=== PATIENT | female | born 2000 | race Two or more races ===

== ENCOUNTER 2019-02-07 15:07 | Emergency (ER) | payer OTHER, MEDICAID ==
[~2019-02-07] VITALS: Ht 154.9 cm; Wt 54.4 kg
[2019-02-07 15:15] VITALS: BP 135/79
[2019-02-07 15:57] LABS: Urine Pregnacy Test Negative (Negative)
[2019-02-07 15:58] LABS: Urine Bacteria FEW /hpf (None Seen); Urine Blood 1+ /uL (Negative); Urine Mucus FEW (None Seen); Urine Specific Gravity 1.023 (1.001-1.035); Urine WBC 1 /hpf (0 - 5)
[2019-02-07 16:14] LABS: Amphetamine Screen, Urine POSITIVE (NEGATIVE); Barbiturate Scree,Urine NEGATIVE (NEGATIVE); Benzodiazephine Screen, Urine NEGATIVE (NEGATIVE); Cannabinoid Screen, Urine NEGATIVE (NEGATIVE); Cocaine Screen, Urine NEGATIVE (NEGATIVE); Opiate Scree,Urine NEGATIVE (NEGATIVE); Phencyclidine Screen, Urine NEGATIVE (NEGATIVE)
== END 2019-02-07 21:35 | disposition left against medical advice (07) ==
LOC: ER 15:16
DX: T43.621A Poisoning by amphetamines, accidental (unintentional), initial encounter (principal); R20.0 Anesthesia of skin; Z53.21 Procedure and treatment not carried out due to patient leaving prior to being seen by health care provider
CPT/HCPCS: 80307; 81001; 81025

== ENCOUNTER 2019-04-16 10:53 | Emergency (ER) | payer OTHER, MEDICAID ==
[~2019-04-16] VITALS: Ht 154.9 cm; Wt 56.7 kg
[2019-04-16] MEDS ORDERED: SODIUM CHLORIDE 0.9% 1,000 ML IVB ONE (11:00)
[2019-04-16] MEDS ORDERED: LORazepam 2MG/ML-1ML VIAL IV ONE (11:00)
[2019-04-16 11:27] LABS: Basophils # (auto) 0 uL; Basophils % (auto) 0.9 % (0.0-2.0); Eosinophils # (auto) 0.2 uL; Eosinophils % (auto) 4.2 % (0.0-7.0); Hematocrit 37.8 % (36.0-46.0); Hemoglobin 12.6 g/dL (12.2-16.2); Lymphocytes # (auto) 1.5 uL; Lymphocytes % (auto) 33.9 % (10.0-50.0); Mean Corpuscular Hemoglobin 29.5 pg (28.0-32.0); Mean Corpuscular Hgb Conc. 33.2 g/dL (32.0-36.0); Monocytes # (auto) 0.4 uL; Monocytes % (auto) 9.7 % (0.0-12.0); Neutrophils # (auto) 2.3 uL; Neutrophils % (auto) 51.3 % (37.0-80.0); Nucleated Red Blood Cells % 0.1 %; Platelet Count (auto) 210 10^3/uL (140-450); Red Blood Cells 4.25 10^6/uL (4.0-5.20); Red Cell Distribution Width 14.5 % (11.8-14.3); White Blood Cell 4.4 10^3/uL (4.4-10.8)
[2019-04-16 11:49] LABS: Alanine Aminotransferase 16 U/L (13-56); Albumin 3.7 g/dL (3.4-5.0); Anion Gap 6 (5-15); Aspartate Aminotransferase 14 U/L (15-37); BUN/Creatinine Ratio 14.3; Blood Alcohol < 3.0 mg/dL (0-5); Blood Urea Nitrogen 12 mg/dL (7-18); Calcium 8.8 mg/dL (8.5-10.1); Carbon Dioxide 25 mmol/L (21-32); Chloride 108 mmol/L (98-107); GFR African American 112 mL/min; GFR Non-African American 93 mL/min; Glucose 82 mg/dL (74-106); Magnesium 2.4 mg/dL (1.6-2.6); Potassium 4.1 mmol/L (3.5-5.1); Sodium 139 mmol/L (136-145)
[2019-04-16 11:51] LABS: Alkaline Phosphatase 57 U/L (45-117); Bilirubin, Total 0.7 mg/dL (0.2-1.0); Total Protein 6.9 g/dL (6.4-8.2)
[2019-04-16 13:26] LABS: Urine Pregnacy Test Negative (Negative)
[2019-04-16 13:35] LABS: Alcohol, Urine < 3.0 mg/dL (0-5); Amphetamine Screen, Urine POSITIVE (NEGATIVE); Barbiturate Scree,Urine NEGATIVE (NEGATIVE); Benzodiazephine Screen, Urine NEGATIVE (NEGATIVE); Cannabinoid Screen, Urine NEGATIVE (NEGATIVE); Cocaine Screen, Urine NEGATIVE (NEGATIVE); Opiate Scree,Urine NEGATIVE (NEGATIVE); Phencyclidine Screen, Urine NEGATIVE (NEGATIVE)
[2019-04-16 16:00] VITALS: BP 100/70
== END 2019-04-16 16:07 | disposition home or self-care (01) ==
LOC: EDBD 10:53 → ER 10:56
DX: R56.9 Unspecified convulsions (principal); J45.909 Unspecified asthma, uncomplicated; F15.10 Other stimulant abuse, uncomplicated; Z59.0 Homelessness
CPT/HCPCS: 36415; 70450; 80053; 80307; 80320; 81025; 83735; 85025; 94761; 96374; 99284; J2060; J7030

== ENCOUNTER 2021-09-06 09:57 | Emergency (ER) | payer MEDICAID ==
[~2021-09-06] VITALS: Ht 154.9 cm; Wt 63.5 kg
[2021-09-06 10:25] VITALS: BP 115/72
[2021-09-06] MEDS ORDERED: MECLIZINE HCL 25 MG TAB PO ONE (12:00)
== END 2021-09-06 12:39 | disposition home or self-care (01) ==
LOC: ER 09:57
DX: G43.909 Migraine, unspecified, not intractable, without status migrainosus (principal); R42 Dizziness and giddiness; J45.909 Unspecified asthma, uncomplicated; F15.10 Other stimulant abuse, uncomplicated; Z59.00 Homelessness unspecified
CPT/HCPCS: 70450; 81025

== ENCOUNTER 2023-01-21 08:34 | Emergency (ER) | payer OTHER, MEDICAID ==
[~2023-01-21] VITALS: Ht 154.9 cm; Wt 81.4 kg
[2023-01-21] MEDS ORDERED: IBUP600T27 PO (10:25)
[2023-01-21 10:26] VITALS: BP 113/71
== END 2023-01-21 10:31 | disposition home or self-care (01) ==
LOC: ER 08:34
DX: G43.909 Migraine, unspecified, not intractable, without status migrainosus (principal); J45.909 Unspecified asthma, uncomplicated; Z59.00 Homelessness unspecified
CPT/HCPCS: 70450

== ENCOUNTER 2023-03-31 17:50 | Emergency (ER) | payer OTHER, MEDICAID ==
[~2023-03-31] VITALS: Ht 154.9 cm; Wt 72.0 kg
[~2023-03-31 17:50] MED LIST: AZITTAB PO; IBUP600T27 PO; PROM1SOL4 PO
[2023-03-31] MEDS ORDERED: ACETAMINOPHEN 325 MG TAB PO ONE (18:30)
[2023-03-31] MEDS ORDERED: METOCLOPRAMIDE HCL 10 MG TAB PO ONE (18:30)
[2023-03-31] MEDS ORDERED: PYRIDOXINE HCL 50 MG TAB PO ONE (18:30)
[2023-03-31] MEDS ORDERED: SODIUM CHLORIDE 0.9% 1,000 ML IV ONE (18:30)
[2023-03-31 18:49] LABS: Basophils # (auto) 0 10 ^3/uL (0-0.2); Basophils % (auto) 0.6 % (0.0-2.0); Eosinophils # (auto) 0.1 10 ^3/uL (0-0.8); Hematocrit 37.6 % (36.0-46.0); Hemoglobin 12.5 g/dL (12.2-16.2); Lymphocytes # (auto) 1.9 10 ^3/uL (0.4-5.4); Lymphocytes % (auto) 34.8 % (10.0-50.0); Mean Corpuscular Hemoglobin 29.7 pg (28.0-32.0); Mean Corpuscular Hgb Conc. 33.3 g/dL (32.0-36.0); Mean Corpuscular Volume 89.3 fL (80.0-100.0); Monocytes # (auto) 0.5 10 ^3/uL (0-1.3); Monocytes % (auto) 9.8 % (0.0-12.0); Neutrophils % (auto) 53.8 % (37.0-80.0); Nucleated Red Blood Cells % 0.2 %; Red Blood Cells 4.21 10^6/uL (4.0-5.20); Red Cell Distribution Width 14.6 % (11.8-14.3); White Blood Cell 5.6 10^3/uL (4.4-10.8)
[2023-03-31 19:13] LABS: Albumin 3.8 g/dL (3.4-5.0); Calcium 8.6 mg/dL (8.5-10.1); Magnesium 2.2 mg/dL (1.6-2.6); Potassium 3.7 mmol/L (3.5-5.1)
[2023-03-31 19:15] LABS: BUN/Creatinine Ratio 11.4 (10.0-20.0); Bilirubin, Total 0.3 mg/dL (0.2-1.0); Total Protein 7.3 g/dL (6.4-8.2)
[2023-03-31 20:03] LABS: Urine Bacteria NONE SEEN /hpf (None Seen); Urine Blood Negative /uL (Negative); Urine Specific Gravity 1.015 (1.001-1.035); Urine WBC 1 /hpf (0 - 5)
[2023-03-31 21:05] VITALS: BP 108/62
[2023-03-31] MEDS ORDERED: ACET-1079 PO (21:25)
[2023-03-31] MEDS ORDERED: PREN-96 PO (21:25)
== END 2023-03-31 22:14 | disposition home or self-care (01) ==
LOC: ER 17:50
DX: O26.891 Other specified pregnancy related conditions, first trimester (principal); G43.909 Migraine, unspecified, not intractable, without status migrainosus; J45.909 Unspecified asthma, uncomplicated; R10.2 Pelvic and perineal pain; F15.90 Other stimulant use, unspecified, uncomplicated; Z79.899 Other long term (current) drug therapy; Z59.00 Homelessness unspecified
CPT/HCPCS: 36415; 80053; 81001; 81025; 83690; 83735; 84702; 85025; 93005; 96360; 99284; J7030; J8597

== ENCOUNTER 2023-04-11 10:53 | Emergency (ER) | payer MEDICAID, OTHER ==
[~2023-04-11] VITALS: Ht 154.9 cm; Wt 78.0 kg
[~2023-04-11 10:53] MED LIST changes: +ACET-1079 PO; +PREN-96 PO
[2023-04-11 11:26] LABS: Basophils # (auto) 0 10 ^3/uL (0-0.2); Basophils % (auto) 0.5 % (0.0-2.0); Eosinophils # (auto) 0 10 ^3/uL (0-0.8); Eosinophils % (auto) 0.8 % (0.0-7.0); Hematocrit 35.8 % (36.0-46.0); Lymphocytes # (auto) 1.5 10 ^3/uL (0.4-5.4); Lymphocytes % (auto) 27.9 % (10.0-50.0); Mean Corpuscular Hemoglobin 29.8 pg (28.0-32.0); Mean Corpuscular Hgb Conc. 33.5 g/dL (32.0-36.0); Monocytes # (auto) 0.5 10 ^3/uL (0-1.3); Monocytes % (auto) 9.4 % (0.0-12.0); Neutrophils # (auto) 3.3 10 ^3/uL (1.6-8.6); Neutrophils % (auto) 61.4 % (37.0-80.0); Red Blood Cells 4.02 10^6/uL (4.0-5.20); Red Cell Distribution Width 14.7 % (11.8-14.3); White Blood Cell 5.4 10^3/uL (4.4-10.8)
[2023-04-11 12:04] LABS: Urine Bacteria NONE SEEN /hpf (None Seen); Urine Blood 1+ /uL (Negative); Urine Specific Gravity 1.017 (1.001-1.035); Urine WBC 4 /hpf (0 - 5)
[2023-04-11] MEDS ORDERED: NITR-87 PO (12:26)
[2023-04-11 13:52] VITALS: BP 106/58
== END 2023-04-11 13:58 | disposition home or self-care (01) ==
LOC: ER 10:53
DX: O20.0 Threatened abortion (principal); O23.41 Unspecified infection of urinary tract in pregnancy, first trimester; N39.0 Urinary tract infection, site not specified; Z3A.01 Less than 8 weeks gestation of pregnancy
CPT/HCPCS: 36415; 76801; 81001; 84702; 85025

== ENCOUNTER 2023-04-19 15:42 | Emergency (ER) | payer OTHER, MEDICAID ==
[~2023-04-19] VITALS: Ht 154.9 cm; Wt 73.0 kg
[~2023-04-19 15:42] MED LIST changes: +NITR-87 PO
[2023-04-19 16:05] VITALS: BP 136/46
[2023-04-19 16:54] LABS: Basophils # (auto) 0 10 ^3/uL (0-0.2); Basophils % (auto) 0.6 % (0.0-2.0); Eosinophils # (auto) 0 10 ^3/uL (0-0.8); Eosinophils % (auto) 0.9 % (0.0-7.0); Hematocrit 34.1 % (36.0-46.0); Hemoglobin 11.6 g/dL (12.2-16.2); Lymphocytes # (auto) 1.5 10 ^3/uL (0.4-5.4); Lymphocytes % (auto) 28.4 % (10.0-50.0); Mean Corpuscular Hemoglobin 30.5 pg (28.0-32.0); Mean Corpuscular Volume 89.7 fL (80.0-100.0); Monocytes # (auto) 0.5 10 ^3/uL (0-1.3); Monocytes % (auto) 10.5 % (0.0-12.0); Neutrophils # (auto) 3.1 10 ^3/uL (1.6-8.6); Neutrophils % (auto) 59.6 % (37.0-80.0); Red Blood Cells 3.81 10^6/uL (4.0-5.20); Red Cell Distribution Width 14.6 % (11.8-14.3); White Blood Cell 5.2 10^3/uL (4.4-10.8)
[2023-04-19 17:16] LABS: Albumin 3.1 g/dL (3.4-5.0); BUN/Creatinine Ratio 11.9 (10.0-20.0); Calcium 8.6 mg/dL (8.5-10.1); Potassium 3.6 mmol/L (3.5-5.1)
[2023-04-19 17:18] LABS: Bilirubin, Total 0.2 mg/dL (0.2-1.0); Total Protein 6.9 g/dL (6.4-8.2)
[2023-04-19 17:31] LABS: Urine Bacteria FEW /hpf (None Seen); Urine Blood Negative /uL (Negative); Urine Mucus FEW (None Seen); Urine Specific Gravity 1.019 (1.001-1.035); Urine WBC 2 /hpf (0 - 5)
[2023-04-19] MEDS ORDERED: METO-281 PO (18:54)
[2023-04-19] MEDS ORDERED: ACETAMINOPHEN 325 MG TAB PO ONE (19:00)
[2023-04-19] MEDS ORDERED: ONDANSETRON ODT 4 MG TAB PO ONE (19:00)
[2023-04-19] MEDS ORDERED: SODIUM CHLORIDE 0.9% 1,000 ML IV ONE (19:00)
== END 2023-04-20 00:36 | disposition home or self-care (01) ==
LOC: ER 15:42
DX: O20.0 Threatened abortion (principal); O21.9 Vomiting of pregnancy, unspecified; Z3A.01 Less than 8 weeks gestation of pregnancy; Z59.00 Homelessness unspecified
CPT/HCPCS: 36415; 76801; 80053; 81001; 83690; 84702; 85025; 86900; 86901

== ENCOUNTER 2024-03-23 12:47 | Emergency (ER) | payer OTHER, MEDICAID ==
[~2024-03-23 12:47] MED LIST changes: +IBUP-1454 PO; -IBUP600T27 PO; +METO-281 PO
== END 2024-03-23 14:40 | disposition left against medical advice (07) ==
LOC: ER 12:47
DX: Z00.00 Encounter for general adult medical examination without abnormal findings (principal); Z53.21 Procedure and treatment not carried out due to patient leaving prior to being seen by health care provider

== ENCOUNTER 2024-06-09 09:13 | Emergency (ER) | payer OTHER, MEDICAID ==
[~2024-06-09] VITALS: Ht 154.9 cm; Wt 79.5 kg
[2024-06-09 11:28] VITALS: TEMP 98.2
[2024-06-09] MEDS: SODIUM CHLORIDE 0.9% 1,000 ML IV ONE (11:31)
[2024-06-09] MEDS: ACETAMINOPHEN 500 MG TAB PO ONE (11:37)
[2024-06-09 13:16] VITALS: BP 111/72; PULSE 73; RESP 20; O2SAT 97
== END 2024-06-09 13:27 | disposition home or self-care (01) ==
LOC: ER 09:13
DX: G43.909 Migraine, unspecified, not intractable, without status migrainosus (principal); Z59.00 Homelessness unspecified
CPT/HCPCS: 96360; 99283; J7030

== ENCOUNTER 2024-09-04 13:30 | Emergency (ER) | payer OTHER, MEDICAID | END 2024-09-04 14:55 | disposition left against medical advice (07) | LOC: ER 13:30 | DX: R51.9 Headache, unspecified (principal); Z53.21 Procedure and treatment not carried out due to patient leaving prior to being seen by health care provider ==

== ENCOUNTER 2025-06-27 20:22 | Emergency (ER) | payer MEDICAID, OTHER ==
[~2025-06-27] VITALS: Ht 154.9 cm; Wt 85.4 kg
--- NOTE | 2025-06-27 20:59 | ED.PDOC ---
GI ASSESSMENT HPI Comments 24y F who presents to the ED for chief complaint of abdominal pain. Pt states she has been having abdominal pain for the past 1x week. Pt states the pain is located diffusely located by the lower abdomen, constant, pressure like in nature rating the pain 10/10, with no associated exacerbating or relieving factors. Pt has associated fever and constipation with last BM 2 days prior. Pt states she took pepto bismol but states it has not helped. Pt in the ED, otherwise denies any other symptoms. Patient was tachycardic at arrival. Chief Complaint: Flu like Time Seen by MD: 20:57 Primary Care Provider: JOVANNA Reviewed Notes: Nurses Notes, Medications, Allergies Allergies: Coded Allergies: NO KNOWN ALLERGIES (Unverified , 04/16/19) Home Meds Active Scripts Metoclopramide Hcl (Reglan) 10 Mg Tab, 10 MG PO Q8HR, #10 TAB as needed for vomiting Prov:GALINDO ARIAS Q DRAG SAWYER 04/19/23 Nitrofurantoin Monohydrate Mac (Macrobid) 100 Mg Cap, 100 MG PO BID for 5 Days, #10 CAP Prov:NGUYỄN LO MD 04/11/23 Vit W/ Ferrous Fumara ( One Daily) Daily Tab, 1 TAB PO DAILY for 30 Days, #30 TAB 0 Refills Prov:SUKUMAR BRONSON MD 03/31/23 Acetaminophen (Tylenol) 325 Mg Tb, 650 MG PO Q6HP PRN for 7 Days, #56 TAB Prov:SUKUMAR BRONSON MD 03/31/23 Promethazine-Dm (Promethazine Dm 6.25-15 mg/5Ml) 1 Robyn Robyn, 5 ML PO Q6HPRN PRN, #120 ML 0 Refills Prov:ASHVIN DANP 02/24/23 Azithromycin (Zithromax Z-Peter) 250 Mg Tab, 250 MG PO DAILY for 5 Days, #6 TAB 0 Refills Z-Peter as directed Prov:ASHVIN DANP 02/24/23 Ibuprofen (Ibuprofen) 600 Mg Tab, 1 TAB PO TID PRN, #30 TAB 0 Refills Prov:ASHVIN DAN LAUNDRY MACHINE TENDER 01/21/23 Information Source: Patient Mode of Arrival: Ambulatory Timing: Days Duration: Since onset Prehospital treatment: None Quality: Aching, Cramping Vomitus: None Severity: Moderate Recent: None Recent Hx of: None Pain Location: Diffuse, Periumbilical Modifying Factors: Nothing Associated sign and symptoms: Nausea, Constipation Past Medical History PAST MEDICAL HISTORY: Denies Surgical History: Denies all surgeries [employer] History: No Pertinent [employer] History Family History Family History: Family hx of DM Social History Smoker: Non-Smoker Alcohol: Denies ETOH Use Drugs: Denies Drug Use Lives In: Homeless Constitutional: denies: chills, diaphoresis, fatigue, fever, malaise, sweats, weakness, others EENTM: denies: blurred vision, double vision, ear bleeding, ear discharge, ear drainage, ear pain, ear ringing, eye pain, eye redness, hearing loss, mouth pain, mouth swelling, nasal discharge, nose bleeding, nose congestion, nose pain, photophobia, tearing, throat pain, throat swelling, voice changes, others Respiratory: denies: cough, hemoptysis, orthopnea, SOB at rest, shortness of breath, SOB with excertion, stridor, wheezing, others Cardiovascular: denies: chest pain, dizzy spells, diaphoresis, Dyspnea on exertion, edema, irregular heart beat, left arm pain, lightheadedness, palpitations, PND, syncope, others Gastrointestinal: reports: abdominal pain, constipated, nausea; denies: abdomen distended, blood streaked bowels, diarrhea, dysphagia, difficulty swallowing, hematemesis, melena, poor appetite, poor fluid intake, rectal bleeding, rectal pain, vomiting, others Genitourinary: denies: abnormal vagina bleeding, burning, dyspareunia, dysuria, flank pain, frequency, hematuria, incontinence, pain, , vagina discharge, urgency, others Neurological: denies: dizziness, fainting, headache, left sided numbness, left sided weakness, numbness, paresthesia, pre-existing deficit, right sided numbness, right sided weakness, seizure, speech problems, tingling, tremors, weakness, others Musculoskeletal: denies: back pain, gout, joint pain, joint swelling, muscle pain, muscle stiffness, neck pain, others Integumetry: denies: bruises, change in color, change in hair/nails, dryness, laceration, lesions, lumps, rash, wounds, others Allergic/Immunocompromised: denies: Difficulty Healing, Frequent Infections, Hives, Itching, others Hematologic/Lymphatic: denies: anemia, blood clots, easy bleeding, easy bruising, swollen glands, others Endocrine: denies: excessive hunger, excessive sweating, excessive thirst, excessive urination, flushing, intolerance to cold, intolerance to heat, unexplained weight gain, unexplained weight loss, others Psychiatric: denies: anxiety, bipolar disorder, depression, hopeless, panic disorder, schizophrenia, sleepless, suicidal, others All Other Systems: Reviewed and Negative (see HPI) Physical Exam General Appearance: Moderate Distress ([id number] distress due to abdominal pain concerns.), Normal HEENT: Normal ENT Inspection, Pharynx Normal, TMs Normal Neck: Full Range of Motion, Non-Tender, Normal, Normal Inspection Respiratory: Chest Non-Tender, Lungs Clear, No Accessory Muscle Use, No Respiratory Distress, Normal Breath Sounds Cardiovascular: No Edema, No JVD, No Murmur, No Gallop, Normal Peripheral Pulses, Regular Rate/Rhythm Breast Exam: Deferred Gastrointestinal: Diffuse (tenderness to palpation throughout bilateral lower quadrants. Difficult to assess due to body habitus. No signs of trauma.) Genitalia: Deferred Pelvic: Deferred Rectal: Deferred Extremities: No calf tenderness, Normal capillary refill, Normal inspection, Normal range of motion, Non-tender, No pedal edema Musculoskeletal : Apperance: Normal Neurologic: Alert, No Motor Deficits, Normal Affect, Normal Mood, No Sensory Deficits Cerebellar Function: Normal Reflexes: Normal Skin: Dry, Normal Color, Warm Lymphatic: No Adenopathy Was a procedure done? Was a procedure done?: No GI differential Dx Differential Diagnosis: Constipation, Gastritis/PUD, Gastroenteritis, UTI, Dehydration, Electrolyte Imbalance, Food Poisoning, , Bacterial, Parasitic X-Ray, Labs, Meds, VS Vital Signs Date Time Temp Pulse Resp B/P (MAP) Pulse Ox O2 Delivery O2 Flow Rate FiO2 06/27/25 22:19 99.7 06/27/25 21:19 125 19 95 Room Air 06/27/25 21:19 100.6 125 19 104/63 (77) 95 100.6 06/27/25 21:19 100.6 06/27/25 20:52 99.0 139 16 113/56 (75) 99 99.0 Lab Test 06/27/25 21:30 06/27/25 21:20 Range/Units Urine Color Yellow Yellow Urine Clarity Turbid H Clear Urine pH 5.5 5.0-9.0 Urine Specific Levels 1.032 1.001-1.035 Urine Protein Trace H Negative Urine Ketones Trace Negative Urine Blood Negative Negative /uL Urine Nitrite Negative Negative Urine Bilirubin Negative Negative Urine Urobilinogen Normal Negative mg/dL Urine Leukocyte Esterase 3+ Negative /uL Urine RBC 2 0 - 4 /hpf Urine Microscopic WBC 52 H 0-5 /HPF Urine Squamous Epithelial Cells Few <5 /hpf Urine Bacteria None seen None Seen /hpf Urine Mucus Few None Seen Urine Glucose Normal Normal mg/dL Urine Test Negative Negative Influenza Type A Antigen Negative Negative Influenza Type B Antigen Negative Negative SARS-CoV-2 Antigen (Rapid) Negative NEGATIVE White Blood Count 9.7 4.4-10.8 10^3/uL Red Blood Count 4.51 4.0-5.20 10^6/uL Hemoglobin 10.9 L 12.2-16.2 g/dL Hematocrit 33.7 L 36.0-46.0 % Mean Corpuscular Volume 74.8 L 80.0-100.0 fL Mean Corpuscular Hemoglobin 24.1 L 28.0-32.0 pg Mean Corpuscular Hemoglobin Concent 32.2 32.0-36.0 g/dL Red Cell Distribution Width 17.0 H 11.8-14.3 % Platelet Count 222 140-450 10^3/uL Mean Platelet Volume 9.0 6.9-10.8 fL Neutrophils (%) (Auto) 84.6 H 37.0-80.0 % Lymphocytes (%) (Auto) 8.0 L 10.0-50.0 % Monocytes (%) (Auto) 7.2 0.0-12.0 % Eosinophils (%) (Auto) 0.0 0.0-7.0 % Basophils (%) (Auto) 0.2 0.0-2.0 % Neutrophils # (Auto) 8.2 1.6-8.6 10 ^3/uL Lymphocytes # (Auto) 0.8 0.4-5.4 10 ^3/uL Monocytes # (Auto) 0.7 0-1.3 10 ^3/uL Eosinophils # (Auto) 0 0-0.8 10 ^3/uL Basophils # (Auto) 0 0-0.2 10 ^3/uL Nucleated Red Blood Cells 0.0 % Sodium Level 138 136-145 mmol/L Potassium Level 3.7 3.5-5.1 mmol/L Chloride Level 105 98-107 mmol/L Carbon Dioxide Level 22 20-31 mmol/L Anion Gap 11 5-15 Blood Urea Nitrogen 11 9-23 mg/dL Creatinine 0.85 0.550-1.02 mg/dL Glomerular Filtration Rate Calc 97 >90 mL/min BUN/Creatinine Ratio 12.9 10.0-20.0 Serum Glucose 99 74-106 mg/dL Calcium Level 9.0 8.7-10.4 mg/dL Lipase 33 12-53 U/L Current Medications Medications (Trade) Dose Ordered Sig/Hitesh Route Start Time Stop Time Status Last Admin Dicyclomine HCl (Bentyl Injection) 20 mg ONCE ONCE IM 06/27/25 21:00 06/27/25 21:01 DC 06/27/25 21:19 Ondansetron HCl (Zofran Po) 4 mg ONCE ONCE PO 06/27/25 21:00 06/27/25 21:01 DC 06/27/25 21:19 Acetaminophen (Tylenol Tablet) 1,000 mg ONCE ONCE PO 06/27/25 21:15 06/27/25 21:16 DC 06/27/25 21:19 X-Ray, Labs, Meds, VS Comment All studies performed the ED were evaluated by me personally. Serum studies were unremarkable for any systemic concerns, but urinalysis confirmed a large urinary tract infection. Patient was given her 1st dose of antibiotics tonight prior to discharge. Advise utilizing antibiotics as directed until completion. Time of 1ST Reevaluation: 23:10 Reevaluation 1ST: Improved Consultation: PCP Patient Education/Counseling: Diagnosis, Treatment Family Education/Counseling: Diagnosis, Treatment, No Family Present SEPSIS Sepsis Screen Recent Procedure: No On Antibiotic Therapy: No Respiratory Rate >20: No Heart Rate >90: No Temp<36 C (96.8 F) or >38.3 C: No SBP <90 or MAP <65 mmHG: No New Acute Mental Status Change: No Is the patient on CPAP, BIPAP,: No Physician Orders Nitrofurantoin Capsule (Macrobid) (06/27/25 23:15) Vital Signs Date Time Temp Pulse Resp B/P (MAP) Pulse Ox O2 Delivery O2 Flow Rate FiO2 06/27/25 22:19 99.7 06/27/25 21:19 125 19 95 Room Air 06/27/25 21:19 100.6 125 19 104/63 (77) 95 100.6 06/27/25 21:19 100.6 06/27/25 20:52 99.0 139 16 113/56 (75) 99 99.0 Laboratory Tests Test 06/27/25 21:20 White Blood Count 9.7 10^3/uL (4.4-10.8) Medications Medications Dose Ordered Sig/Hitesh Route Start Time Stop Time Status Last Admin Dose Admin Acetaminophen 1,000 mg ONCE ONCE PO 06/27/25 21:15 06/27/25 21:16 DC 06/27/25 21:19 Dicyclomine HCl 20 mg ONCE ONCE IM 06/27/25 21:00 06/27/25 21:01 DC 06/27/25 21:19 Ondansetron HCl 4 mg ONCE ONCE PO 06/27/25 21:00 06/27/25 21:01 DC 06/27/25 21:19 Departure 1 Departure Time of Disposition: 23:10 Impression: Primary Impression: Urinary tract infection Disposition: HOME / SELF CARE / HOMELESS Condition: Stable Additional Instructions: Advise utilizing antibiotics as directed until completion as well as additional medication as needed. Good hydration and healthy nutrition throughout. e-Prescriptions Ondansetron Odt 4MG Tab (ZOFRAN PO) 4 Mg Tb 4 MG PO Q6HP PRN, #10 TAB ODT TAB-DISSOLVE IN MOUTH, THEN SWALLOW Prov: JARED MARINO PAC 06/27/25 Ibuprofen Micronized (Ibuprofen) 800 Mg Tab 800 MG PO Q8HP PRN, #20 TAB Prov: JARED MARINO PAC 06/27/25 Acetaminophen (Acetaminophen) 500 Mg Tab 500 MG PO Q4HP PRN, #30 TAB Prov: JARED MARINO PAC 06/27/25 Nitrofurantoin Monohydrate Mac (Macrobid) 100 Mg Cap 100 MG PO BID for 7 Days, #14 CAP Prov: JARED MARINO PAC 06/27/25 Discharged With: Self, Friend Critical Care Note Critical Care Time?: No Stability Stability form required: No Heart Score Heart Score: Heart Score Response (Comments) Value History N/A 0 EKG N/A 0 Age N/A 0 Risk Factors N/A 0 Troponin N/A 0 Total 0 I personally scribed for JARED MARINO PAC ([email or web address]) on 06/27/25 at 20:59. Electronically submitted by Abhinav Smith ([email or web address]). JARED MARINO PAC Jun 27, 2025 20:59
[2025-06-27 21:19] VITALS: BP 104/63; PULSE 125; RESP 19; O2SAT 95
[2025-06-27] MEDS: DICYCLOMINE HCL (10MG/ML) 2 ML AMPULE IM ONE (21:19)
[2025-06-27] MEDS: ACETAMINOPHEN 325 MG TAB PO ONE (21:19)
[2025-06-27] MEDS: ONDANSETRON ODT 4 MG TAB PO ONE (21:19)
[2025-06-27 21:49] LABS: Nucleated Red Blood Cells % 0.0 %
[2025-06-27 21:51] LABS: Hematocrit 33.7 % (36.0-46.0); Hemoglobin 10.9 g/dL (12.2-16.2); Mean Corpuscular Hemoglobin 24.1 pg (28.0-32.0); Mean Corpuscular Volume 74.8 fL (80.0-100.0)
[2025-06-27 21:55] LABS: Urine Protein, UAD TRACE (Negative)
[2025-06-27 21:58] LABS: Chloride 105 mmol/L (98-107); Potassium 3.7 mmol/L (3.5-5.1); Sodium 138 mmol/L (136-145)
[2025-06-27 21:59] LABS: Anion Gap 11 (5-15); Calcium 9.0 mg/dL (8.7-10.4); Carbon Dioxide 22 mmol/L (20-31)
[2025-06-27 22:04] LABS: BUN/Creatinine Ratio 12.9 (10.0-20.0); Blood Urea Nitrogen 11 mg/dL (9-23); Glucose 99 mg/dL (74-106); Lipase 33 U/L (12-53)
[2025-06-27 22:21] LABS: COVID19 ANTIGEN SOFIA FIA NEGATIVE (NEGATIVE)
[2025-06-27] MEDS ORDERED: IBUP-1455 PO (23:12)
[2025-06-27] MEDS ORDERED: NITR-87 PO (23:12)
[2025-06-27] MEDS ORDERED: ZOFR4T PO (23:12)
[2025-06-27] MEDS ORDERED: ACET500T58 PO (23:12)
[2025-06-27] MEDS: IBUPROFEN 800 MG TAB PO ONE (23:35)
[2025-06-28 00:08] VITALS: TEMP 99.1
== END 2025-06-28 00:09 | disposition home or self-care (01) ==
LOC: ER 20:22
DX: N39.0 Urinary tract infection, site not specified (principal); Z79.899 Other long term (current) drug therapy; Z20.822 Contact with and (suspected) exposure to COVID-19; Z59.00 Homelessness unspecified
CPT/HCPCS: 36415; 80048; 81001; 81025; 83690; 85025; 87426; 87804; 96372; 99285; J0500; Q0162